=== PATIENT | male | born 1970 | race Caucasian/White ===

== ENCOUNTER 2017-03-31 21:28 | Emergency (ER) | payer BC | END 2017-03-31 22:07 | disposition home or self-care (01) | LOC: ERS 21:28 | DX: S00.531A Contusion of lip, initial encounter (principal); S00.31XA Abrasion of nose, initial encounter; S00.81XA Abrasion of other part of head, initial encounter; J45.909 Unspecified asthma, uncomplicated; F17.220 Nicotine dependence, chewing tobacco, uncomplicated; W22.8XXA Striking against or struck by other objects, initial encounter | CPT/HCPCS: 99283 ==

== ENCOUNTER 2017-08-12 17:57 | Emergency (ER) | payer BC ==
[~2017-08-12 17:57] MED LIST: ISOVUE-370 76%-LOCM 1 ML ONE
[2017-08-12] MEDS ORDERED: Morphine 4 MG/ML VIAL ONE (19:39)
[2017-08-12 19:49] LABS: #Basophils 0.1 thou/uL (0.0-0.2); #Eosinphils 0.1 thou/uL (0.0-0.7); #Lymphocytes 1.6 thou/uL (1.20-3.40); #Monocytes 0.4 thou/uL (0.11-0.59); %Basophils 0.8 % (0.0-1.0); %Eosinophils 2.3 % (0.0-10.0); %Monocytes 6.9 % (0.0-10.0); Hemoglobin 13.1 g/dL (14.0-18.0); Mean Corpuscular HGB CONC 33.3 g/dL (32.0-36.0); Mean Corpuscular Hemoglobin 30.4 pg (27.0-31.0); Mean Corpuscular Volume 91.5 fl (80.0-94.0); Mean Platelet Volume 8.6 fL (7.4-10.4); Platelet Count 161 thou/uL (130-400); RBC Distribution Width 12.5 % (11.5-14.5); White Blood Cell (WBC) Count 6.2 thou/uL (4.8-10.8)
[2017-08-12 20:12] LABS: ALT (SGPT) 10 U/L (8-55); AST (SGOT) 16 U/L (5-34); Albumin 3.7 g/dL (3.5-5.0); Alkaline Phosphatase 69 U/L (40-150); Anion Gap 10 mmol/L (10-20); BUN (Urea Nitrogen) 9 mg/dL (8.9-20.6); Bilirubin, Total 0.5 mg/dL (0.2-1.2); Calc. Creatinine Clearance 0 mL/min (70-130); Calcium 9.4 mg/dL (7.8-10.44); Carbon Dioxide 32 mmol/L (22-29); Chloride 105 mmol/L (98-107); Estimated GFR-MDRD 70; Globulin 2.6 g/dL (2.4-3.5); Glucose 117 mg/dL (70-105); Protein, Total 6.3 g/dL (6.0-8.3); Sodium 142 mmol/L (136-145)
[2017-08-12 20:23] LABS: Bilirubin Negative (Negative); Blood, Urine Negative (Negative); Clarity CLEAR (Clear); Glucose, Urine (Dipstick) Negative (Negative); Leukocyte Negative (Negative); Nitrite Negative (Negative); Protein, Urine (Dipstick) Negative (Neg-Trace); Specific Gravity, Urine 1.035 (1.002-1.036); Urobilinogen 0.2 mg/dL (0.2-1.0)
--- NOTE | 2017-08-12 21:24 | CT ---
ABDOMEN CT WITH CONTRAST PELVIC CT WITH CONTRAST: History: Epigastric pain. Abdominal pain. Right flank pain. Comparison: 08-06-16 Technique: Abdomen and pelvic CT performed with IV contrast. Enteric contrast was not administered. C oronal reformatted images are submitted for interpretation. FINDINGS: Stable induration of the subcutaneous fat. Stable hypodensity in the midline subcutaneous fat at the level of the umbilicus, likely relating to a post-operative fluid collection measuring 4.3 x 1.5 cm. Lung bases are clear. Heart size is normal. No significant pericardial fluid. Visualized aorta has a normal caliber. No periaortic fat stranding. There is a hypodensity along the right heart border measuring 3.3 x 3.2 cm, compatible with a pericar dial cyst, similar to the prior exam. Portal vein is not assessed due to timing of bolus. The liver, spleen, pancreas, and adrenal glands h ave appropriate enhancement. Gallbladder is unremarkable. Hypodensity in the left kidney cannot be further characterized. Bilaterally, no evidence of nephrolit hiasis. Punctate, less than 1 mm calcifications, in the left and right renal pelvis. No evidence of h ydronephrosis or perinephric fat stranding. Bilateral ureters have a normal caliber. No hydroureter, periatrial fat stranding or ureterolithiasis. Rotation of the left kidney is again noted. No mesenteric mass, lymphadenopathy, free air or free fluid. Note is made of a moderate hiatal hernia with evidence of previous post-surgical change. Evaluation of the alimentary canal is limited by lack of oral contrast. No evidence of bowel obstruction. Multip le normal caliber small bowel loops are noted. Ileocecal junction appears to be normal. Normal calibe r appendix. Fecal material throughout a nondistended, nondilated colon. Diverticulosis, without evide nce of diverticulitis. PELVIC CT: No mass, lymphadenopathy, free air or free fluid. The urinary bladder is unremarkable. No lytic or blastic lesions in the osseous structures. IMPRESSION: 1. No acute abnormality in the abdomen or pelvis. 2. Stable hernia with stable post surgical changes. 3. Normal caliber appendix. 4. No evidence of bowel obstruction. There is diverticulosis. No evidence of diverticulitis. POS: [facility]
== END 2017-08-12 21:03 | disposition home or self-care (01) ==
LOC: ERS 17:57
DX: R10.31 Right lower quadrant pain (principal); R10.32 Left lower quadrant pain; J45.909 Unspecified asthma, uncomplicated; F17.220 Nicotine dependence, chewing tobacco, uncomplicated; Z79.899 Other long term (current) drug therapy
CPT/HCPCS: 36415; 74177; 80053; 81003; 85025; 96374; J2270

== ENCOUNTER 2018-05-22 08:59 | Emergency (ER) | payer BC ==
[2018-05-22] MEDS ORDERED: Ketorolac Tromethamine 60 MG/2 ML VIAL ONE (09:35)
--- NOTE | 2018-05-22 10:09 | RAD ---
SINGLE VIEW OF THE PELVIS: Comparison: None. History: Fall with left hip pain. FINDINGS: Anterior view of the pelvis shows no evidence of fracture or dislocation. No degenerative change is s een in either hip. IMPRESSION: Unremarkable exam. POS: [facility]
--- NOTE | 2018-05-22 10:14 | RAD ---
THREE VIEWS LEFT WRIST: Comparison: None. History: Left wrist pain after fall. FINDINGS: Three views of the left wrist shows a comminuted fracture of the distal radius which appears to be se en in the radiocarpal joint. The fracture is impacted with foreshortening of the radius compared to t he ulna. An associated ulnar styloid fracture may also be present. Surrounding soft tissue swelling i s seen. IMPRESSION: Distal radius and ulnar styloid process fractures. POS: [facility]
[2018-05-22] MEDS ORDERED: Bacitracin Zinc 1 Packet ONE (10:16)
== END 2018-05-22 10:54 | disposition home or self-care (01) ==
LOC: ERS 08:59
DX: S52.502A Unspecified fracture of the lower end of left radius, initial encounter for closed fracture (principal); S39.81XA Other specified injuries of abdomen, initial encounter; J45.909 Unspecified asthma, uncomplicated; F17.220 Nicotine dependence, chewing tobacco, uncomplicated; Z79.891 Long term (current) use of opiate analgesic; Z79.899 Other long term (current) drug therapy; W01.190A Fall on same level from slipping, tripping and stumbling with subsequent striking against furniture, initial encounter
CPT/HCPCS: 29125; 72170; 96372; J1885

== ENCOUNTER 2018-05-23 11:06 | Outpatient (CLI) | payer BC ==
[2018-05-23 11:55] LABS: #Eosinphils 0.2 thou/uL (0.0-0.7); #Lymphocytes 1.2 thou/uL (1.20-3.40); #Monocytes 0.3 thou/uL (0.11-0.59); #Neutrophils 3.5 thou/uL (1.40-6.50); %Basophils 0.3 % (0.0-1.0); %Eosinophils 4.1 % (0.0-10.0); %Lymphocytes 22.5 % (21.0-51.0); %Monocytes 5.7 % (0.0-10.0); %Neutrophils 67.5 % (42.0-75.0); Hemoglobin 12.5 g/dL (14.0-18.0); Mean Corpuscular HGB CONC 31.5 g/dL (32.0-36.0); Mean Corpuscular Hemoglobin 29.5 pg (27.0-31.0); Mean Corpuscular Volume 93.9 fL (78.0-98.0); Mean Platelet Volume 8.5 fL (7.4-10.4); Platelet Count 184 thou/uL (130-400); RBC Distribution Width 13.1 % (11.5-14.5); Red Blood Cell (RBC) Count 4.23 mill/uL (4.70-6.10); White Blood Cell (WBC) Count 5.2 thou/uL (4.8-10.8)
[2018-05-23 12:20] LABS: Anion Gap 11 mmol/L (10-20); BUN (Urea Nitrogen) 16 mg/dL (8.9-20.6); Calc. Creatinine Clearance 0 mL/min (70-130); Calcium 9.3 mg/dL (7.8-10.44); Carbon Dioxide 29 mmol/L (22-29); Chloride 107 mmol/L (98-107); Estimated GFR-MDRD 62; Glucose 83 mg/dL (70-105); Potassium 5.1 mmol/L (3.5-5.1); Sodium 142 mmol/L (136-145)
--- NOTE | 2018-05-23 15:54 | EKG ---
Test Reason : Blood Pressure : / mmHG Vent. Rate : 074 BPM Atrial Rate : 074 BPM P-R Int : 172 ms QRS Dur : 080 ms QT Int : 362 ms P-R-T Axes : 075 075 053 degrees QTc Int : 401 ms Normal sinus rhythm ST elevation, consider early repolarization Borderline ECG Confirmed by PIA MADSEN ([id number]) on 05/23/2018 3:54:09 PM Referred By: JAMEL Confirmed By:PIA MADSEN
== END 2018-05-23 11:07 | disposition home or self-care (01) ==
LOC: LABBT 11:06
PROVIDERS: ATTEND Orthopaedic Surgery
DX: Z01.818 Encounter for other preprocedural examination (principal); S52.572A Other intraarticular fracture of lower end of left radius, initial encounter for closed fracture
CPT/HCPCS: 80048; 85025; 93005; 93010

== ENCOUNTER → 2018-05-24 | Day surgery (SDC) | payer BC ==
[2018-05-23 11:40] VITALS: BMI 31.4
[~2018-05-24] MED LIST changes: +Bupivacaine HCl 0.5%/Epinephrine 1:200,000/PF 30 ml Vial ONE; +Clindamycin/D5W 600 mg/50 ml Premix Bag ONE; +Fentanyl 100 MCG/2 ML VIAL ONE; +HYDROcodone/Acetaminophen 5/325 mg Tablet ONE; -ISOVUE-370 76%-LOCM 1 ML ONE; +Lidocaine 1% PF 5 ML VIAL ONE; +Midazolam HCl 2 mg/2 ml Vial ONE; +PROPOFOL 200 MG/20 ML VIAL ONE
--- NOTE | 2018-05-24 13:21 | OP ---
DATE OF PROCEDURE: 05/24/2018 PREOPERATIVE DIAGNOSIS: Displaced intra-articular distal radius fracture, left with shaft extension. PROCEDURE PERFORMED: Open reduction and internal fixation of left radial shaft and distal radial intra-articular fracture. LACING OPERATOR: Carlos. BLOOD LOSS: Minimal. SPECIMENS: None. DRAINS: None. COMPLICATIONS: None. DESCRIPTION OF PROCEDURE: The patient was taken to the operating room, where general anesthesia was induced. Left arm was prepped and draped in a sterile fashion. I made an FCR approach. Dissection was carried down to the fracture. Fracture was quite displaced and comminuted. First thing I did, was exposed the radial shaft and clamped it together and used lag screws to fix the shaft fragments together. Once this was done, I aligned the distal radius fracture with the shaft and placed a 5-hole Synthes plate and screws in the usual fashion. I obtained a very good reduction, nearly anatomic. Biplanar images were obtained. Irrigation was performed. Subcutaneous tissue was closed with 3-0 Vicryl. Skin was closed with xu and a sterile dressing was applied. There were no complications. Job ID: [id number]
--- NOTE | 2018-05-24 15:11 | RAD ---
TWO VIEWS LEFT WRIST: HISTORY: Left wrist pain, open reduction internal fixation. FINDINGS: AP and lateral views of the left wrist demonstrate plates and screws in place. Previously noted Julee es fracture has been stabilized. Plate and screws are in good position. IMPRESSION: Open reduction internal fixation distal left radial fracture. POS: [facility]
== END ==
LOC: SDC 08:29
PROVIDERS: ATTEND Orthopaedic Surgery
PROC: 0PSJ04Z Reposition Left Radius with Internal Fixation Device, Open Approach (ICD-10-PCS; principal; 2018-05-24)
DX: S52.572A Other intraarticular fracture of lower end of left radius, initial encounter for closed fracture (principal); S52.302A Unspecified fracture of shaft of left radius, initial encounter for closed fracture; S63.512A Sprain of carpal joint of left wrist, initial encounter; F17.290 Nicotine dependence, other tobacco product, uncomplicated; Z79.2 Long term (current) use of antibiotics; Z79.899 Other long term (current) drug therapy; Z88.0 Allergy status to penicillin; Z88.2 Allergy status to sulfonamides; Z98.84 Bariatric surgery status; Z98.890 Other specified postprocedural states; W01.0XXA Fall on same level from slipping, tripping and stumbling without subsequent striking against object, initial encounter
CPT/HCPCS: 76000; C1713; J0670; J2001; J2250; J2704; J3010; J3490

== ENCOUNTER 2018-06-06 14:12 | Emergency (ER) | payer BC ==
[2018-06-06] MEDS ORDERED: Ketorolac Tromethamine 30 MG/ML VIAL ONE (15:45)
--- NOTE | 2018-06-06 16:34 | CT ---
CT OF LUMBAR SPINE WITHOUT CONTRAST 06/06/18 INDICATION: History of left hip pain and fall with low back pain. FINDINGS: No definite acute fracture or subluxation is evident. There is vacuum disc phenomenon at L5-S1 likely related to disc degenerative disease and disc instability. There is mild vascular calcification involving the abdominal aorta. There is a stable small left rhonda l cyst. There is degenerative change involving both SI joints. There is a broad based bulge and loss of disc space height inducing mild right neural foraminal narro wing at L5-S1. There is mild bilateral neural foraminal narrowing at L4-5 due to broad based bulge and facet hypertr ophy. There is mild neural foraminal narrowing at L3-4 due to a broad based and facet hypertrophy. No appreciable osseous central canal or neural foraminal narrowing seen at L1-2 and L2-3. IMPRESSION: 1. No acute fracture or subluxation is evident. 2. Mild to moderate spondylosis of the lumbar spine. POS: [facility]
--- NOTE | 2018-06-06 16:39 | CT ---
CT OF THE PELVIS WITHOUT IV CONTRAST 06/06/18 INDICATION: History of fall with hip pain. COMPARISON: Radiographs of the pelvis dated 05/22/18. IMPRESSION: There is some periosteal reaction involving nondisplaced fracture involving the left inferior pubic r amus. There is also a nondisplaced left pubic body fracture. There is a minimally displaced left pubi c root fracture. The sacrum appears intact. There is soft tissue gas overlying the right gluteal reg ion likely related to prior injection. There is a peripherally calcified hypodense density seen withi n the lower fascia of the lower abdomen likely related to an area of prior seroma or fat necrosis. Th ere is a moderate amount of retained stool within the colon. IMPRESSION: Nondisplaced left pubic root, left pubic body and left inferior ramus fracture. POS: [facility]
== END 2018-06-06 17:12 | disposition home or self-care (01) ==
LOC: ERS 14:12
DX: S32.592A Other specified fracture of left pubis, initial encounter for closed fracture (principal); J45.909 Unspecified asthma, uncomplicated; F17.220 Nicotine dependence, chewing tobacco, uncomplicated; W11.XXXA Fall on and from ladder, initial encounter
CPT/HCPCS: 72131; 72192; 96372; J1885

== ENCOUNTER 2018-11-04 09:11 | Outpatient (CLI) | payer BC ==
--- NOTE | 2018-11-04 11:38 | RAD ---
Barium swallow esophagram double contrast: DATE: 11/04/2018 HISTORY: 43-year-old male with dysphagia. TECHNIQUE: Upright administration of effervescent granules, thick liquid barium, and barium tablet with water. Prone HAMILTON straw administration of thin liquid barium. FINDINGS: Post surgical narrowing of gastric channel. No gastric outlet obstruction. Moderate sized dilated pouch at the esophagogastric junction with irregular margins, located at midli ne and slightly superior to the diaphragmatic hiatus. Superior to this, the esophagus has tertiary contractions. The esophagus is tortuous. When filled with barium and gas, it becomes diffusely dilate d. Barium tablet passes rapidly into the stomach. No stricture. When supine, the barium reflux into the dilated pouch, but not significantly into the rest of the esophagus. IMPRESSION: 1. Status post vertical sleeve gastrectomy. 2. Dilated pouch at esophagogastric junction. Differential diagnosis is small to moderate-sized parae sophageal hiatal hernia versus pouch dilatation. 3. Esophageal ectasia. 4. Presbyesophagus. 5. No esophageal stricture.
== END 2018-11-04 09:12 | disposition home or self-care (01) ==
LOC: RAD 09:11
PROVIDERS: ATTEND Internal Medicine Gastroenterology
DX: R13.10 Dysphagia, unspecified (principal); R11.2 Nausea with vomiting, unspecified; R63.4 Abnormal weight loss; K22.8 Other specified diseases of esophagus; Z98.84 Bariatric surgery status; Z98.890 Other specified postprocedural states
CPT/HCPCS: 74220

== ENCOUNTER 2019-03-20 18:54 | Emergency (ER) | payer BC ==
[2019-03-20] MEDS ORDERED: HYDROcodone/Acetaminophen 5/325 mg Tablet ONE (19:56)
== END 2019-03-20 20:10 | disposition home or self-care (01) ==
LOC: ERS 18:54
DX: K40.90 Unilateral inguinal hernia, without obstruction or gangrene, not specified as recurrent (principal); J45.909 Unspecified asthma, uncomplicated; F17.220 Nicotine dependence, chewing tobacco, uncomplicated; Z79.899 Other long term (current) drug therapy
CPT/HCPCS: 99283

== ENCOUNTER 2019-04-18 07:49 | Outpatient (CLI) | payer BC ==
--- NOTE | 2019-04-18 09:20 | CT ---
CT ABDOMEN AND PELVIS WITH CONTRAST: HISTORY: Right-sided inguinal pain. COMPARISON: Pelvis 06/06/[address] abdomen and pelvis from 08/12/2017. FINDINGS: Lung bases are clear. Prior gastric surgery with hernia of the GE junction. The well-defined hypodense along the right pericardiophrenic border is unchanged in size. The spleen and pancreas are unremarkable. Hypodensity of the interpolar region left kidney is unchan ged. The aortic contour is nonaneurysmal. Peripherally calcified fluid collection superficial to the rectus abdominus aponeurosis within a midl ine scar does contain fat likely related to fat necrosis which is relatively unchanged in size. No definite testicles can be appreciated. Mild fullness of the right spermatic cord. No intrahepatic or extrahepatic biliary dilatation. The gallbladder is unremarkable. No dilated loops of large or small bowel. Moderate degenerative disease of L5-S1. IMPRESSION: 1. Diaphragmatic hernia containing a portion of the gastroesophageal junction with evidence of prior gastric sleeve. There is abnormal thickening of the distal esophagus. Upper endoscopy recommended. 2. No definite testicles can be appreciated. There is mild fullness of the right spermatic cord. T esticular ultrasound evaluation recommended. 3. Likely liquified fat necrosis superficial to the rectus abdominus sheath lower midline abdomen li tony postsurgical in nature with adjacent scar. 4. Mild diverticular disease of the sigmoid colon . 5. 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 POS: [facility]
[2019-04-18] MEDS ORDERED: Iopamidol-370 76% 500 ML 1 ML ONE (14:22)
== END 2019-04-18 07:50 | disposition home or self-care (01) ==
LOC: BICCT 07:49
PROVIDERS: ATTEND Surgery
DX: R10.31 Right lower quadrant pain (principal); K44.9 Diaphragmatic hernia without obstruction or gangrene; K22.8 Other specified diseases of esophagus; K57.30 Diverticulosis of large intestine without perforation or abscess without bleeding
CPT/HCPCS: 74177; Q9967

== ENCOUNTER 2019-04-28 08:29 | Outpatient (CLI) | payer BC ==
--- NOTE | 2019-04-28 09:05 | RAD ---
RIGHT HIP 2 VIEWS: HISTORY: Right inguinal pain. FINDINGS: Joint space is fairly well preserved. Some minimal osteophytic lipping of the acetabulum noted. No fracture. IMPRESSION: Essentially unremarkable hip. POS: [facility]
== END 2019-04-28 08:30 | disposition home or self-care (01) ==
LOC: RAD 08:29
PROVIDERS: ATTEND Nurse Practitioner Family
DX: R10.31 Right lower quadrant pain (principal)
CPT/HCPCS: 80307; 80326; 80331; 80334; 80337; 80341; 80344; 80346; 80348; 80353; 80354; 80355; 80357; 80358; 80359; 80360; 80361; 80364; 80365; 80366; 80367; 80368; 80370; 80371; 80372; 80377

== ENCOUNTER 2019-05-21 14:16 | Outpatient (CLI) | payer BC ==
--- NOTE | 2019-05-21 16:56 | MRI ---
MRI PELVIS WITHOUT IV CONTRAST: 05/21/19 HISTORY: Right inguinal pain with history of right sided pelvic and right groin pain. FINDINGS: Multiplanar and multisequence MRI examination of the pelvis is performed. There is a 1.9 x 4.5 cm jade meter heterogeneous signal mass in the superficial subcutaneous portion of the anterior abdominal wal l below the level of the umbilicus which was present and is stable when compared to the 04/18/[address] [facility]. This may well represent some type of old scar or residual hematoma. There is some edematous calixto ges involving the right inguinal canal at the level of the abdomen and extending throughout the right inguinal canal down to a normal appearing testis which is in the inferior portion of the right ingui nal canal. There is some associated fluid. On the left side, there is fat containing inguinal hernia with some trace fluid in it. The region of the symphysis pubis is unremarkable. No evidence for abnor mal marrow signal acutely. There is evidence for old left sided pubic fractures. The rectus aponeuros is and common adductor insertion regions appear unremarkable. No evidence for osteitis pubis. No abno rmal fluid collection within the soft tissue pelvis. IMPRESSION: Edematous appearing right inguinal canal possibly inflamed fatty hernia versus inflamed or edematous dilated right spermatic cord. A normal appearing right testis extends into the inferior portion of th e inguinal canal. Fat containing left inguinal hernia without significant inflammation. No evidence f or osteitis pubis or findings seen with typical sports hernia injury including the common adductor an d rectus abdominis aponeurosis. Circumscribed focal mass of abnormal signal in the anterior abdominal wall in the midline below the level of the umbilicus corresponding to a partially calcified mass in this region on prior CT scan of 04/18/19 possibly a residual hematoma. No evidence for avascular necro sis or acute stress injury or fracture, acute fracture of the pelvis or hips. POS: [facility]
== END 2019-05-21 14:17 | disposition home or self-care (01) ==
LOC: BICMRI 14:16
PROVIDERS: ATTEND Surgery
DX: R10.31 Right lower quadrant pain (principal); K40.90 Unilateral inguinal hernia, without obstruction or gangrene, not specified as recurrent; R93.3 Abnormal findings on diagnostic imaging of other parts of digestive tract
CPT/HCPCS: 72195

== ENCOUNTER 2019-07-23 06:09 | Outpatient (CLI) | payer BC, OTHER ==
[2019-07-23 10:59] LABS: #Eosinphils 0.1 thou/uL (0.0-0.7); #Lymphocytes 1.6 thou/uL (1.20-3.40); #Monocytes 0.5 thou/uL (0.11-0.59); #Neutrophils 3.5 thou/uL (1.40-6.50); %Basophils 0.6 % (0.0-1.0); %Eosinophils 2.1 % (0.0-10.0); %Lymphocytes 27.5 % (21.0-51.0); %Monocytes 8.6 % (0.0-10.0); %Neutrophils 61.2 % (42.0-75.0); Hemoglobin 14.8 g/dL (14.0-18.0); Mean Corpuscular HGB CONC 32.3 g/dL (32.0-36.0); Mean Corpuscular Volume 92.8 fL (78.0-98.0); Platelet Count 172 thou/uL (130-400); RBC Distribution Width 13.1 % (11.5-14.5); Red Blood Cell (RBC) Count 4.94 mill/uL (4.70-6.10); White Blood Cell (WBC) Count 5.7 thou/uL (4.8-10.8)
[2019-07-23 11:16] LABS: ALT (SGPT) 10 U/L (8-55); AST (SGOT) 18 U/L (5-34); Albumin 4.2 g/dL (3.5-5.0); Alkaline Phosphatase 65 U/L (40-110); Anion Gap 11 mmol/L (10-20); BUN (Urea Nitrogen) 12 mg/dL (8.9-20.6); Bilirubin, Total 0.6 mg/dL (0.2-1.2); Calc. Creatinine Clearance 0 mL/min (70-130); Calcium 9.9 mg/dL (7.8-10.44); Carbon Dioxide 30 mmol/L (22-29); Chloride 104 mmol/L (98-107); Estimated GFR-MDRD 61; Globulin 2.9 g/dL (2.4-3.5); Glucose 91 mg/dL (70-105); Potassium 5.3 mmol/L (3.5-5.1); Protein, Total 7.1 g/dL (6.0-8.3); Sodium 140 mmol/L (136-145)
[2019-07-23 18:39] LABS: SARS-CoV-2 MS2 Positive; SARS-CoV-2 N Gene Negative; SARS-CoV-2 S Gene Negative; SARS-CoV-2 orf1ab Negative
--- NOTE | 2019-07-27 16:04 | EKG ---
Test Reason : Blood Pressure : / mmHG Vent. Rate : 063 BPM Atrial Rate : 063 BPM P-R Int : 176 ms QRS Dur : 064 ms QT Int : 360 ms P-R-T Axes : 074 068 064 degrees QTc Int : 368 ms Normal sinus rhythm with sinus arrhythmia Normal ECG When compared with ECG of 23-MAY-2018 11:40, No significant change was found Confirmed by ELI HUMPHREY ([id number]) on 07/27/2019 4:04:23 PM Referred By: PAUL Confirmed By:ELI HUMPHREY
== END 2019-07-23 06:10 | disposition home or self-care (01) ==
LOC: LABBT 06:09
PROVIDERS: ATTEND Surgery
DX: Z01.818 Encounter for other preprocedural examination (principal); Z11.59 Encounter for screening for other viral diseases; K40.90 Unilateral inguinal hernia, without obstruction or gangrene, not specified as recurrent
CPT/HCPCS: 80053; 85025; 87635; 93005; 93010; U0003

== ENCOUNTER 2019-07-28 05:56 | Day surgery (SDC) | payer BC ==
[2019-07-23 09:57] VITALS: BMI 35.2
[2019-07-28] MEDS ORDERED: Midazolam HCl 2 mg/2 ml Vial ONE (06:14)
[2019-07-28] MEDS ORDERED: Fentanyl 100 MCG/2 ML VIAL ONE ×2 (06:14→09:15)
[2019-07-28] MEDS ORDERED: Lidocaine 1% w/Epinephrine 1:100K 20 ML VIAL ONE (06:43)
[2019-07-28] MEDS ORDERED: Bupivacaine 0.25% HCL 30 ML VIAL ONE (06:43)
[2019-07-28] MEDS ORDERED: Ondansetron PF 4 MG/2 ML Vial ONE ×2 (07:43→11:23)
[2019-07-28] MEDS ORDERED: Morphine 4 MG/ML VIAL ONE (08:46)
[2019-07-28] MEDS ORDERED: Morphine 2 MG/ML SYRINGE ONE (09:19)
[2019-07-28] MEDS ORDERED: HYDROcodone/Acetaminophen 5/325 mg Tablet ONE (10:00)
--- NOTE | 2019-07-28 11:00 | OP ---
DATE OF PROCEDURE: 07/28/2019 PREOPERATIVE DIAGNOSIS: Right inguinal hernia. PROCEDURE PERFORMED: Right inguinal hernia repair with mesh. INDICATIONS: This is a 49-year-old male, morbidly obese, who has been having quite a bit of groin pain. I could not feel a hernia due to his body habitus, an MRI showed it. FINDINGS: Indirect inguinal hernia, right side. DESCRIPTION OF PROCEDURE: After informed consent was obtained, the patient was taken to the operating room, given general mask anesthesia, placed in the supine position. Groin was prepped and draped in usual fashion. Local anesthesia was infiltrated subcutaneously and deep, and a transverse inguinal incision was performed through his old scar. Subcu divided sharply down to the fascia, which was very deep. It took a long time to find the spermatic cord, found it. Cremaster fibers , hernia sac was found. This was dissected from surrounding cord structures down to the internal ring and reduced. Reduction was maintained with a PHS hernia system placed in the preperitoneal space. Then, it was sutured to the pubic tubercle with a 2-0 Prolene suture, sutured to the internal oblique with a 2-0 Prolene suture. A notch was cut out for the spermatic cord. The hemostasis was achieved. The fascia was closed with a running 3-0 Vicryl. Coreen was closed with interrupted 3-0 Vicryl, and the skin was closed with a running subcuticular 4-0 Rapide. Steri-Strips applied. Sterile bandage applied. The patient tolerated the procedure well, transferred to Recovery in good condition. Sponge and needle count verified correct x2. Job ID: [id number]
[2019-07-28] MEDS ORDERED: Dexamethasone 20 MG/5 ML VIAL ONE (11:23)
[2019-07-28] MEDS ORDERED: PROPOFOL 200 MG/20 ML VIAL ONE (11:23)
[2019-07-28] MEDS ORDERED: Lidocaine 1% PF 5 ML VIAL ONE (11:23)
== END 2019-07-28 10:40 | disposition home or self-care (01) ==
LOC: SDC 05:56
PROVIDERS: ATTEND Surgery
PROC: 0YU50JZ Supplement Right Inguinal Region with Synthetic Substitute, Open Approach (ICD-10-PCS; principal; 2019-07-28)
DX: K40.90 Unilateral inguinal hernia, without obstruction or gangrene, not specified as recurrent (principal); E66.01 Morbid (severe) obesity due to excess calories; Z68.35 Body mass index [BMI] 35.0-35.9, adult; Z88.0 Allergy status to penicillin; Z88.2 Allergy status to sulfonamides; Z79.899 Other long term (current) drug therapy; Z98.84 Bariatric surgery status
CPT/HCPCS: C1781; J0690; J1100; J2001; J2250; J2270; J2405; J2704; J3010; S0020

== ENCOUNTER 2019-09-22 08:58 | Outpatient (CLI) | payer BC ==
--- NOTE | 2019-09-22 09:50 | RAD ---
Exam: Sinus Hernandez view only HISTORY: MRI clearance FINDINGS: No radiopaque foreign body projecting over the calvarium, sinuses or orbits. No radiopaque foreign bodies in the soft tissues IMPRESSION: No radiopaque foreign body
--- NOTE | 2019-09-22 12:19 | MRI ---
MRI LEFT WRIST: Date: 09/22/2019 PROVIDED CLINICAL HISTORY: Left wrist pain. FINDINGS: Comparison made with radiograph dated 09/04/2019. This examination is markedly limited due to susceptibility artifact and distortion related to distal radial postoperative change. Positive ulnar variance is demonstrated as seen on that examination, as is a mildly distracted ulnar styloid fracture. There are subcortical cyst-like changes within the ulnar margin of the distalmost i ntact ulna. No definite corresponding signal alteration is seen within the adjacent triquetrum. The T FC complex is poorly evaluated on the basis of this examination. No definite evidence for full thickn ess defect is apparent. There is a small distal radial ulnar joint effusion, however. The scapholunate and lunotriquetral ligaments are obscured, as is the majority of the radiocarpal ileana nt space. The amount of fluid within the radiocarpal joint appears grossly anatomic. There is greater than physiologic mid carpal joint fluid. There is increased signal intensity on fluid sensitive sequences and mild thickening involving the ex tensor carpi ulnaris tendon proximal to the joint. There is greater than physiologic ECU tenosynovial fluid. The visualized dorsal extensor and volar flexor tendons demonstrate an otherwise unremarkable MR appe arance. The visualized courses of the regional major neurovascular structures appear unremarkable. IMPRESSION: 1. Limited exam. 2. Greater than physiologic midcarpal and distal radioulnar joint fluid is present. Assessment of th e intrinsic wrist ligaments and TFC complex is suboptimal. 3. ECU tendinosis and mild tenosynovitis. POS: [facility]
== END 2019-09-22 08:59 | disposition home or self-care (01) ==
LOC: BICMRI 08:58
PROVIDERS: ATTEND Orthopaedic Surgery
DX: S69.82XA Other specified injuries of left wrist, hand and finger(s), initial encounter (principal); M65.88 Other synovitis and tenosynovitis, other site; M25.832 Other specified joint disorders, left wrist
CPT/HCPCS: 70210

== ENCOUNTER 2020-01-26 12:16 | Emergency (ER) | payer BC ==
--- NOTE | 2020-01-26 13:14 | RAD ---
XR Hand Rt 3 View STANDARD HISTORY: Injury, right hand pain FINDINGS: No fracture or dislocation is identified.
[2020-01-26] MEDS ORDERED: HYDROcodone/Acetaminophen 10/325 mg Tablet ONE (14:11)
== END 2020-01-26 14:21 | disposition home or self-care (01) ==
LOC: ERS 12:16
DX: S60.221A Contusion of right hand, initial encounter (principal); J45.909 Unspecified asthma, uncomplicated; F17.220 Nicotine dependence, chewing tobacco, uncomplicated; W26.9XXA Contact with unspecified sharp object(s), initial encounter

== ENCOUNTER 2020-11-30 11:12 | Outpatient (CLI) | payer BC | END 2020-11-30 11:13 | disposition home or self-care (01) | LOC: RAD-FRANK 11:12 | PROVIDERS: ATTEND Nurse Practitioner Family | DX: M25.571 Pain in right ankle and joints of right foot (principal) ==

== ENCOUNTER 2021-02-02 07:34 | Emergency (ER) | payer BC ==
[2021-02-02] MEDS ORDERED: Ibuprofen 800 MG TAB ONE (08:34)
[2021-02-02] MEDS ORDERED: Acetaminophen 500 MG TAB ONE (08:34)
[2021-02-02 15:25] LABS: SARS-CoV-2 PCR by NAA Not Detected (NotDetected)
== END 2021-02-02 08:39 | disposition home or self-care (01) ==
LOC: ERS 07:34
DX: B34.9 Viral infection, unspecified (principal); J45.909 Unspecified asthma, uncomplicated; F17.220 Nicotine dependence, chewing tobacco, uncomplicated; Z20.822 Contact with and (suspected) exposure to COVID-19
CPT/HCPCS: 87804; 99284; U0003; U0005

== ENCOUNTER 2021-04-18 13:27 | Outpatient (CLI) | payer BC | END 2021-04-18 13:28 | disposition home or self-care (01) | LOC: BICRAD 13:27 | PROVIDERS: ATTEND Nurse Practitioner Family | DX: R05.9 Cough, unspecified (principal); K44.9 Diaphragmatic hernia without obstruction or gangrene | CPT/HCPCS: 71046 ==

== ENCOUNTER 2021-12-22 13:33 | Outpatient (CLI) | payer BC | END 2021-12-22 13:34 | disposition home or self-care (01) | LOC: TBSIIMAG 13:33 | PROVIDERS: ATTEND Nurse Practitioner Family | DX: M54.16 Radiculopathy, lumbar region (principal); M48.061 Spinal stenosis, lumbar region without neurogenic claudication; M48.07 Spinal stenosis, lumbosacral region | CPT/HCPCS: 72148 ==

== ENCOUNTER 2022-01-11 11:36 | Outpatient (CLI) | payer BC | END 2022-01-11 11:37 | disposition home or self-care (01) | LOC: BICRAD 11:36 | PROVIDERS: ATTEND Anesthesiology Pain Medicine | DX: M25.531 Pain in right wrist (principal); M54.16 Radiculopathy, lumbar region; M19.031 Primary osteoarthritis, right wrist; M89.9 Disorder of bone, unspecified ==

== ENCOUNTER 2022-05-22 15:57 | Outpatient (CLI) | payer BC ==
[2022-05-22 17:18] LABS: #Basophils 0.1 10x3/uL (0.0-0.2); #Eosinphils 0.1 10x3/uL (0.0-0.5); #Monocytes 0.6 10x3/uL (0.0-1.1); #Neutrophils 6.3 10x3/uL (1.5-8.4); %Basophils 0.9 % (0.0-2.0); %Eosinophils 1.4 % (0.0-6.0); %Lymphocytes 23.4 % (18.0-47.0); %Monocytes 6.6 % (0.0-10.0); %Neutrophils 67.5 % (40.0-75.0); Hemoglobin 15.3 g/dL (13.5-17.5); Mean Corpuscular HGB CONC 32.6 g/dL (32.0-36.0); Mean Corpuscular Hemoglobin 29.9 pg (27.0-33.0); Mean Corpuscular Volume 91.8 fl (81.2-95.1); Mean Platelet Volume 12.1 fl (7.4-10.4); Platelet Count 251 10x3/uL (150-450); RBC Distribution Width 13.3 % (11.5-14.5); Red Blood Cell (RBC) Count 5.12 10x6/uL (4.32-5.72); White Blood Cell (WBC) Count 9.4 10x3/uL (3.5-10.5)
[2022-05-22 17:39] LABS: ALT (SGPT) 22 U/L (8-55); AST (SGOT) 36 U/L (5-34); Albumin 4.5 g/dL (3.5-5.0); Alkaline Phosphatase 74 U/L (40-110); Anion Gap 16 mmol/L (10-20); BUN (Urea Nitrogen) 27 mg/dL (8.4-25.7); Bilirubin, Total 0.4 mg/dL (0.2-1.2); Calc. Creatinine Clearance 0 mL/min (70-130); Calcium 9.9 mg/dL (7.8-10.44); Carbon Dioxide 24 mmol/L (22-29); Chloride 105 mmol/L (98-107); Estimated GFR 36; Glucose 89 mg/dL (70-105); Potassium 4.7 mmol/L (3.5-5.1); Protein, Total 7.5 g/dL (6.0-8.3); Sodium 140 mmol/L (136-145)
== END 2022-05-22 15:58 | disposition home or self-care (01) ==
LOC: LABBT 15:57
PROVIDERS: ATTEND Surgery
DX: Z01.818 Encounter for other preprocedural examination (principal); K43.2 Incisional hernia without obstruction or gangrene
CPT/HCPCS: 80053; 85025; 93005; 93010

== ENCOUNTER 2022-06-02 05:45 | Day surgery (SDC) | payer BC ==
[2022-05-31 12:26] VITALS: BMI 45.6
[2022-06-02] MEDS ORDERED: Bupivacaine/Epinephrine 0.25% 30 ML VIAL ONE (06:54)
[2022-06-02] MEDS ORDERED: Midazolam HCl 2 mg/2 ml Vial ONE (07:05)
[2022-06-02] MEDS ORDERED: fentaNYL PF 100 MCG/2 ML SYRINGE ONE ×3 (07:05→09:46)
[2022-06-02] MEDS ORDERED: Lidocaine 2% 6 ML SYR ONE (07:06)
[2022-06-02] MEDS ORDERED: SUGAMMADEX SODIUM 200 MG/2 ML VIAL ONE (07:06)
[2022-06-02] MEDS ORDERED: PHENYLEPHRINE-NS 100 MCG/ML 10 ML SYRINGE ONE (07:07)
[2022-06-02] MEDS ORDERED: Meropenem 1 GM in Sodium Chloride 0.9% 100 ML IVPB SCH (07:45)
[2022-06-02] MEDS ORDERED: HYDROcodone/Acetaminophen 5/325 mg Tablet ONE (10:42)
[2022-06-02] MEDS ORDERED: Morphine 2 MG/ML VIAL ONE (10:44)
== END 2022-06-02 12:00 | disposition home or self-care (01) ==
LOC: SDC 05:45
PROVIDERS: ATTEND Surgery
PROC: 0YU64JZ Supplement Left Inguinal Region with Synthetic Substitute, Percutaneous Endoscopic Approach (ICD-10-PCS; principal; 2022-06-02)
DX: K40.91 Unilateral inguinal hernia, without obstruction or gangrene, recurrent (principal); G89.29 Other chronic pain; M10.9 Gout, unspecified; F17.290 Nicotine dependence, other tobacco product, uncomplicated; E66.01 Morbid (severe) obesity due to excess calories; Z68.42 Body mass index [BMI] 45.0-49.9, adult; Z88.0 Allergy status to penicillin; Z88.1 Allergy status to other antibiotic agents; Z88.2 Allergy status to sulfonamides; Z79.1 Long term (current) use of non-steroidal anti-inflammatories (NSAID); Z79.899 Other long term (current) drug therapy
CPT/HCPCS: C1781; J2185; J2250; J2272; J3490

== ENCOUNTER 2022-07-05 22:37 | Observation (INO) | payer BC, MEDICARE ==
[2022-07-05 23:29] LABS: #Eosinphils 0.3 thou/uL (0.0-0.7); #Lymphocytes 1.1 thou/uL (1.20-3.40); #Monocytes 0.5 thou/uL (0.11-0.59); #Neutrophils 3.1 thou/uL (1.40-6.50); %Basophils 0.5 % (0.0-1.0); %Lymphocytes 21.9 % (21.0-51.0); %Monocytes 9.6 % (0.0-10.0); %Neutrophils 62.1 % (42.0-75.0); Mean Corpuscular HGB CONC 33.6 g/dL (32.0-36.0); Mean Corpuscular Hemoglobin 32.6 pg (27.0-31.0); Mean Corpuscular Volume 96.9 fl (78.0-98.0); Mean Platelet Volume 9.2 fL (7.4-10.4); Platelet Count 147 10x3/uL (130-400); RBC Distribution Width 13.9 % (11.5-14.5); Red Blood Cell (RBC) Count 3.68 mill/uL (4.70-6.10)
[2022-07-05 23:49] LABS: ALT (SGPT) 24 U/L (8-55); AST (SGOT) 51 U/L (5-34); Albumin 3.4 g/dL (3.5-5.0); Alkaline Phosphatase 78 U/L (40-110); Anion Gap 13 mmol/L (10-20); BUN (Urea Nitrogen) 32 mg/dL (8.4-25.7); Bilirubin, Total 0.2 mg/dL (0.2-1.2); Calc. Creatinine Clearance 0 mL/min (70-130); Calcium 8.6 mg/dL (7.8-10.44); Carbon Dioxide 21 mmol/L (22-29); Chloride 111 mmol/L (98-107); Estimated GFR 39; Globulin 2.5 g/dL (2.4-3.5); Glucose 144 mg/dL (70-105); Magnesium 2.2 mg/dL (1.6-2.6); Potassium 4.6 mmol/L (3.5-5.1); Protein, Total 5.9 g/dL (6.0-8.3); Sodium 140 mmol/L (136-145)
[2022-07-06 02:10] LABS: Bilirubin Negative (Negative); Blood, Urine Negative (Negative); Clarity Clear (Clear); Glucose, Urine (Dipstick) Normal (Negative); Ketone, Urine Negative (Negative); Leukocyte Negative Leu/uL (Negative); Nitrite Negative (Negative); Protein, Urine (Dipstick) Negative (Neg-Trace); Specific Gravity, Urine 1.016 (1.002-1.036); Urobilinogen Normal mg/dL (Less than 2)
[2022-07-06 03:28] VITALS: TEMP 98
[2022-07-06 03:41] VITALS: BMI 43.2
[2022-07-06 04:18] VITALS: BP 104/76
== END 2022-07-06 04:52 | disposition left against medical advice (07) ==
LOC: ERS 22:37 → ERHOLD 07-06 02:30
PROVIDERS: ADMIT Student in an Organized Health Care Education/Training Program; ATTEND Student in an Organized Health Care Education/Training Program
DX: I95.9 Hypotension, unspecified (principal); I12.9 Hypertensive chronic kidney disease with stage 1 through stage 4 chronic kidney disease, or unspecified chronic kidney disease; N18.9 Chronic kidney disease, unspecified; J45.909 Unspecified asthma, uncomplicated; G89.29 Other chronic pain; M54.9 Dorsalgia, unspecified; F17.220 Nicotine dependence, chewing tobacco, uncomplicated; Z53.29 Procedure and treatment not carried out because of patient's decision for other reasons; Z79.899 Other long term (current) drug therapy; Z88.0 Allergy status to penicillin; Z88.1 Allergy status to other antibiotic agents; Z88.2 Allergy status to sulfonamides; Z98.84 Bariatric surgery status
CPT/HCPCS: 36415; 71045; 80053; 81003; 83735; 84484; 85025; 93005; G0378

== ENCOUNTER 2024-02-18 08:08 | Outpatient (CLI) | payer BC ==
[2024-02-18 09:42] LABS: #Basophils 0.04 10x3/uL (0.0-0.2); %Basophils 0.5 % (0.0-1.0); %Eosinophils 1.8 % (0.0-10.0); %Lymphocytes 17.7 % (21.0-51.0); %Monocytes 7.1 % (0.0-10.0); %Neutrophils 72.6 % (42.0-75.0); Hematocrit 47.8 % (42.0-52.0); Hemoglobin 15.7 g/dL (14.0-18.0); Mean Corpuscular HGB CONC 32.8 g/dL (32.0-36.0); Mean Corpuscular Volume 91.4 fL (78.0-98.0); Mean Platelet Volume 11.8 fL (7.4-10.4); Platelet Count 193 10x3/uL (130-400); RBC Distribution Width 14.3 % (11.5-14.5); Red Blood Cell (RBC) Count 5.23 mill/uL (4.70-6.10)
[2024-02-18 10:00] LABS: Anion Gap 12 mmol/L (10-20); BUN (Urea Nitrogen) 14 mg/dL (8.4-25.7); Calc. Creatinine Clearance 0 mL/min (70-130); Calcium 9.5 mg/dL (7.8-10.44); Carbon Dioxide 29 mmol/L (22-29); Chloride 102 mmol/L (98-107); Estimated GFR 59; Glucose 93 mg/dL (70-105); Sodium 139 mmol/L (136-145)
== END 2024-02-18 08:09 | disposition home or self-care (01) ==
LOC: LABBT 08:08
PROVIDERS: ATTEND Orthopaedic Surgery Hand Surgery
DX: Z01.818 Encounter for other preprocedural examination (principal); M18.11 Unilateral primary osteoarthritis of first carpometacarpal joint, right hand
CPT/HCPCS: 80048; 85025; 87081; 93005; 93010

== ENCOUNTER 2024-02-22 09:00 | Day surgery (SDC) | payer BC ==
[2024-02-18 08:33] VITALS: BMI 47.0
[2024-02-22] MEDS ORDERED: fentaNYL PF 100 MCG/2 ML SYRINGE ONE (09:53)
[2024-02-22] MEDS ORDERED: Lidocaine 2% PF 5 ML VIAL ONE (09:53)
[2024-02-22] MEDS ORDERED: PROPOFOL 20 ML ONE (09:53)
[2024-02-22] MEDS ORDERED: fentaNYL 50 mcg/mL 1 mL Vial ONE (09:54)
[2024-02-22] MEDS ORDERED: Bacitracin Zinc Ointment 30 gm TUBE ONE (09:54)
[2024-02-22] MEDS ORDERED: Midazolam HCl 2 mg/2 ml Vial ONE (09:55)
[2024-02-22] MEDS ORDERED: Ropivacaine 0.5% HCl/PF (150 MG/30 ML VIAL) ONE (09:55)
[2024-02-22] MEDS ORDERED: Rocuronium Bromide 10 MG/ML (10ML VIAL) ONE (09:56)
[2024-02-22] MEDS ORDERED: Ropivacaine 0.2% HCl/PF 20 ML ONE (10:03)
[2024-02-22] MEDS ORDERED: Clindamycin/D5W 900 mg/50 ml Premix Bag ONE (10:11)
[2024-02-22] MEDS ORDERED: Vancomycin (BATCH) 1.5 GM/300 ML BAG ONE (10:21)
[2024-02-22] MEDS ORDERED: Ondansetron PF 4 MG/2 ML Vial ONE (11:43)
[2024-02-22] MEDS ORDERED: NEOSTIGMINE 3 MG/3 ML SYRINGE ONE (11:44)
[2024-02-22] MEDS ORDERED: Glycopyrrolate 0.2 MG/ML 5 ML SYRINGE ONE (11:44)
[2024-02-22] MEDS ORDERED: ePHEDrine Sulfate 50 MG/10 ML VIAL ONE (11:50)
[2024-02-22] MEDS ORDERED: SUGAMMADEX SODIUM 200 MG/2 ML VIAL ONE (13:21)
[2024-02-22] MEDS ORDERED: Ketorolac Tromethamine 30 MG (1 mL) VIAL ONE (14:54)
== END 2024-02-22 15:58 | disposition home or self-care (01) ==
LOC: SDC 09:00
PROVIDERS: ATTEND Orthopaedic Surgery Hand Surgery
PROC: 0PBM0ZZ Excision of Right Carpal, Open Approach (ICD-10-PCS; principal; 2024-02-22)
PROC: 0RRS0JZ Replacement of Right Carpometacarpal Joint with Synthetic Substitute, Open Approach (ICD-10-PCS; principal; 2024-02-22)
PROC: 3E0T3BZ Introduction of Anesthetic Agent into Peripheral Nerves and Plexi, Percutaneous Approach (ICD-10-PCS; principal; 2024-02-22)
DX: M18.11 Unilateral primary osteoarthritis of first carpometacarpal joint, right hand (principal); S63.592A Other specified sprain of left wrist, initial encounter; Z98.84 Bariatric surgery status; Z96.653 Presence of artificial knee joint, bilateral; Z88.2 Allergy status to sulfonamides; Z88.1 Allergy status to other antibiotic agents; Z79.899 Other long term (current) drug therapy; X58.XXXA Exposure to other specified factors, initial encounter
CPT/HCPCS: C1713; C1894; J1885; J2250; J2405; J2704; J2795; J3010; J3370; J3490

== ENCOUNTER 2024-10-22 19:52 | Inpatient (IN) | payer BC ==
[2024-10-22 20:30] LABS: #Basophils 0.05 10x3/uL (0.0-0.2); #Eosinophils 0.14 10x3/uL (0.0-0.7); #Monocytes 1.08 10x3/uL (0.11-0.59); #Neutrophils 6.77 10x3/uL (1.40-6.50); %Basophils 0.5 % (0.0-1.0); %Eosinophils 1.4 % (0.0-10.0); %Lymphocytes 16.9 % (21.0-51.0); %Monocytes 11.1 % (0.0-10.0); %Neutrophils 69.8 % (42.0-75.0); Hematocrit 50.0 % (42.0-52.0); Hemoglobin 16.8 g/dL (14.0-18.0); Mean Corpuscular Hemoglobin 29.9 pg (27.0-31.0); Mean Corpuscular Volume 89.0 fL (78.0-98.0); Platelet Count 201 10x3/uL (130-400); Red Blood Cell (RBC) Count 5.62 mill/uL (4.70-6.10); White Blood Cell (WBC) Count 9.71 10x3/uL (4.8-10.8)
[2024-10-22 20:39] LABS: ALT (SGPT) 13 U/L (Less than 45); AST (SGOT) 30 U/L (11-34); Albumin 4.4 g/dL (3.1-4.5); Alkaline Phosphatase 65 U/L (40-110); Anion Gap 17 mmol/L (10-20); BUN (Urea Nitrogen) 25 mg/dL (8.4-25.7); Bilirubin, Total 0.7 mg/dL (0.3-1.2); CK (CPK) 157 U/L (30-200); Calc. Creatinine Clearance 0 mL/min (70-130); Calcium 10.5 mg/dL (7.8-10.44); Carbon Dioxide 19 mmol/L (22-29); Chloride 109 mmol/L (98-107); Globulin 3.6 g/dL (2.4-3.5); Glucose 77 mg/dL (70-105); Magnesium 2.4 mg/dL (1.6-2.6); Potassium 3.8 mmol/L (3.5-5.1); Sodium 141 mmol/L (136-145)
[2024-10-22 20:44] LABS: Troponin I 0.012 ng/mL (< 0.028)
[2024-10-22] MEDS ORDERED: Ondansetron PF 4 MG/2 ML Vial IVP PRN (23:51)
[2024-10-22] MEDS ORDERED: Acetaminophen 325 MG TAB PO PRN (23:51)
[2024-10-22] MEDS ORDERED: Calcium Carbonate 500 MG ChewTAB PO PRN (23:51)
[2024-10-23 00:44] VITALS: BMI 43.3
[2024-10-23 05:42] LABS: #Basophils 0.03 10x3/uL (0.0-0.2); #Eosinophils 0.17 10x3/uL (0.0-0.7); #Monocytes 0.68 10x3/uL (0.11-0.59); #Neutrophils 3.53 10x3/uL (1.40-6.50); %Basophils 0.5 % (0.0-1.0); %Eosinophils 2.8 % (0.0-10.0); %Lymphocytes 26.3 % (21.0-51.0); %Monocytes 11.3 % (0.0-10.0); %Neutrophils 58.8 % (42.0-75.0); Hematocrit 45.3 % (42.0-52.0); Hemoglobin 14.4 g/dL (14.0-18.0); Mean Corpuscular Hemoglobin 29.3 pg (27.0-31.0); Mean Corpuscular Volume 92.1 fL (78.0-98.0); Platelet Count 155 10x3/uL (130-400); Red Blood Cell (RBC) Count 4.92 mill/uL (4.70-6.10); White Blood Cell (WBC) Count 6.01 10x3/uL (4.8-10.8)
[2024-10-23 05:57] LABS: ALT (SGPT) 12 U/L (Less than 45); AST (SGOT) 24 U/L (11-34); Albumin 3.5 g/dL (3.1-4.5); Alkaline Phosphatase 53 U/L (40-110); Anion Gap 12 mmol/L (10-20); BUN (Urea Nitrogen) 25 mg/dL (8.4-25.7); Bilirubin, Total 0.5 mg/dL (0.3-1.2); Calc. Creatinine Clearance 50 mL/min (70-130); Calcium 9.1 mg/dL (7.8-10.44); Carbon Dioxide 22 mmol/L (22-29); Chloride 111 mmol/L (98-107); Globulin 2.8 g/dL (2.4-3.5); Glucose 75 mg/dL (70-105); Potassium 4.4 mmol/L (3.5-5.1); Sodium 141 mmol/L (136-145)
[2024-10-23 12:34] LABS: Bacteria/HPF None Seen HPF (None Seen); Glucose, Urine (Dipstick) Normal (Negative); Leukocyte Negative Leu/uL (Negative); Protein, Urine (Dipstick) 20 mg/dL (Neg-Trace); RBC/HPF 0-3 HPF (0-3); Specific Gravity, Urine 1.011 (1.002-1.036); WBC/HPF 0-3 HPF (0-3)
[2024-10-23] MEDS ORDERED: Albuterol 200 PUFF INH INH PRN (17:48)
[2024-10-24 05:42] LABS: #Basophils 0.04 10x3/uL (0.0-0.2); #Eosinophils 0.21 10x3/uL (0.0-0.7); #Monocytes 0.47 10x3/uL (0.11-0.59); #Neutrophils 3.01 10x3/uL (1.40-6.50); %Basophils 0.8 % (0.0-1.0); %Eosinophils 4.1 % (0.0-10.0); %Lymphocytes 26.8 % (21.0-51.0); %Monocytes 9.2 % (0.0-10.0); %Neutrophils 58.9 % (42.0-75.0); Hematocrit 44.1 % (42.0-52.0); Hemoglobin 14.2 g/dL (14.0-18.0); Mean Corpuscular Hemoglobin 29.3 pg (27.0-31.0); Mean Corpuscular Volume 91.1 fL (78.0-98.0); Platelet Count 141 10x3/uL (130-400); Red Blood Cell (RBC) Count 4.84 mill/uL (4.70-6.10); White Blood Cell (WBC) Count 5.11 10x3/uL (4.8-10.8)
[2024-10-24 06:14] LABS: Anion Gap 12 mmol/L (10-20); BUN (Urea Nitrogen) 21 mg/dL (8.4-25.7); Calc. Creatinine Clearance 82 mL/min (70-130); Calcium 9.0 mg/dL (7.8-10.44); Carbon Dioxide 22 mmol/L (22-29); Chloride 111 mmol/L (98-107); Glucose 77 mg/dL (70-105); Potassium 3.9 mmol/L (3.5-5.1); Sodium 141 mmol/L (136-145)
[2024-10-24] MEDS: Allopurinol 300 MG TAB PO SCH (08:14)
[2024-10-25 05:22] LABS: #Basophils 0.04 10x3/uL (0.0-0.2); #Eosinophils 0.19 10x3/uL (0.0-0.7); #Monocytes 0.46 10x3/uL (0.11-0.59); #Neutrophils 3.38 10x3/uL (1.40-6.50); %Basophils 0.7 % (0.0-1.0); %Eosinophils 3.4 % (0.0-10.0); %Lymphocytes 27.7 % (21.0-51.0); %Monocytes 8.2 % (0.0-10.0); %Neutrophils 59.8 % (42.0-75.0); Hematocrit 46.1 % (42.0-52.0); Hemoglobin 14.5 g/dL (14.0-18.0); Mean Corpuscular Hemoglobin 28.8 pg (27.0-31.0); Mean Corpuscular Volume 91.7 fL (78.0-98.0); Platelet Count 157 10x3/uL (130-400); Red Blood Cell (RBC) Count 5.03 mill/uL (4.70-6.10); White Blood Cell (WBC) Count 5.64 10x3/uL (4.8-10.8)
[2024-10-25 05:40] LABS: Anion Gap 12 mmol/L (10-20); BUN (Urea Nitrogen) 16 mg/dL (8.4-25.7); Calc. Creatinine Clearance 91 mL/min (70-130); Calcium 9.1 mg/dL (7.8-10.44); Carbon Dioxide 25 mmol/L (22-29); Chloride 112 mmol/L (98-107); Glucose 85 mg/dL (70-105); Potassium 3.9 mmol/L (3.5-5.1); Sodium 145 mmol/L (136-145)
[2024-10-25 07:54] VITALS: BP 138/85; TEMP 98
== END 2024-10-25 11:20 | disposition home or self-care (01) | DRG 683 ==
LOC: ERS 19:52 → T4-A 23:25 → OBSVTOIN 10-23 11:00
PROVIDERS: ADMIT Student in an Organized Health Care Education/Training Program; ATTEND Internal Medicine
DX: N17.9 Acute kidney failure, unspecified (principal); Z68.41 Body mass index [BMI] 40.0-44.9, adult; E86.0 Dehydration; I95.9 Hypotension, unspecified; N18.9 Chronic kidney disease, unspecified; I12.9 Hypertensive chronic kidney disease with stage 1 through stage 4 chronic kidney disease, or unspecified chronic kidney disease; E66.813 Obesity, class 3; Z79.899 Other long term (current) drug therapy; Z88.0 Allergy status to penicillin; Z88.1 Allergy status to other antibiotic agents; Z88.2 Allergy status to sulfonamides; Z90.89 Acquired absence of other organs; Z98.890 Other specified postprocedural states; M10.9 Gout, unspecified; G43.909 Migraine, unspecified, not intractable, without status migrainosus
CPT/HCPCS: 36415; 76770; 80048; 80053; 81001; 82550; 83036; 83735; 84484; 85025; 93005; 96360; 96361; G0378; J7120

== ENCOUNTER 2024-11-21 18:29 | Emergency (ER) | payer BC ==
[2024-11-21] MEDS ORDERED: Ondansetron PF 4 MG/2 ML Vial ONE (19:29)
[2024-11-21 19:49] LABS: #Basophils 0.04 10x3/uL (0.0-0.2); #Eosinophils 0.15 10x3/uL (0.0-0.7); #Monocytes 0.61 10x3/uL (0.11-0.59); #Neutrophils 4.31 10x3/uL (1.40-6.50); %Basophils 0.6 % (0.0-1.0); %Eosinophils 2.3 % (0.0-10.0); %Lymphocytes 23.1 % (21.0-51.0); %Monocytes 9.2 % (0.0-10.0); %Neutrophils 64.6 % (42.0-75.0); Hematocrit 44.4 % (42.0-52.0); Hemoglobin 14.2 g/dL (14.0-18.0); Mean Corpuscular Hemoglobin 29.1 pg (27.0-31.0); Mean Corpuscular Volume 91.0 fL (78.0-98.0); Platelet Count 193 10x3/uL (130-400); Red Blood Cell (RBC) Count 4.88 mill/uL (4.70-6.10); White Blood Cell (WBC) Count 6.66 10x3/uL (4.8-10.8)
[2024-11-21 20:05] LABS: ALT (SGPT) 14 U/L (Less than 45); AST (SGOT) 31 U/L (11-34); Albumin 4.0 g/dL (3.1-4.5); Alkaline Phosphatase 60 U/L (40-110); Anion Gap 15 mmol/L (10-20); BUN (Urea Nitrogen) 25 mg/dL (8.4-25.7); Bilirubin, Total 0.5 mg/dL (0.3-1.2); Calc. Creatinine Clearance 0 mL/min (70-130); Calcium 9.8 mg/dL (7.8-10.44); Carbon Dioxide 24 mmol/L (22-29); Chloride 109 mmol/L (98-107); Globulin 3.0 g/dL (2.4-3.5); Glucose 85 mg/dL (70-105); Potassium 4.3 mmol/L (3.5-5.1); Sodium 144 mmol/L (136-145)
== END 2024-11-21 22:42 | disposition home or self-care (01) ==
LOC: ERS 18:29
DX: K57.30 Diverticulosis of large intestine without perforation or abscess without bleeding (principal); I10 Essential (primary) hypertension; F17.220 Nicotine dependence, chewing tobacco, uncomplicated; Z79.899 Other long term (current) drug therapy
CPT/HCPCS: 74177; 80053; 83605; 85025; 93005; 96374; 96375; J2270; J2405